=== PATIENT | female | born 1960 | race African-American/Black ===

== ENCOUNTER 2024-10-06 13:26 | Inpatient (IN) | payer OTHER, BC ==
[2024-10-06 15:04] LABS: ABSOLUTE IMMATURE GRANULOCYTES 0.02 x10^3/uL (0.0-0.031); BASOPHILS # 0.02 x10^3/uL (0.01-0.08); EOSINOPHIL % 0.3 % (0.7-5.8); EOSINOPHILS # 0.02 x10^3/uL (0.04-0.36); MCHC 32.4 g/dl (32.2-35.5); MEAN CELL VOLUME 97.9 fl (79.4-94.8); MEAN PLT VOLUME 10.3 fl (9.4-12.3); MONOCYTE # 0.40 x10^3/uL (0.24-0.86); MONOCYTE % 6.8 % (4.7-12.5); RDW 12.3 % (12.4-16.4)
[2024-10-06 15:21] LABS: CO2 27.0 mmol/L (21-32); GLUCOSE,RANDOM 109.0 mg/dL (74-106)
[2024-10-06 15:24] LABS: SGPT/ALT 34.0 U/L (13-61)
[2024-10-06 15:25] LABS: CREATININE 0.7 mg/dL (0.55-1.3); SGOT/AST 27.0 U/L (15-37)
[2024-10-06 15:26] LABS: TOT PROT 7.8 g/dl (6.4-8.2)
[2024-10-06 15:27] LABS: ALK PHOS 85.0 U/L (45-117)
[2024-10-06] MEDS ORDERED: NAPROXEN 500 MG TABLET PO PRN (18:59)
[2024-10-06] MEDS ORDERED: ALBUTEROL SO4 HFA INHALER IH PRN (19:02)
[2024-10-06] MEDS ORDERED: guaiFENesin/D-METHORPHAN HB 10 ML UNIT-DOSE CUPS PO PRN (19:03)
[2024-10-06] MEDS: ATORVASTATIN CA 40 MG TABLET (FP) PO SCH (22:04)
[2024-10-06] MEDS: MAGNESIUM CL 64 MG TABLET.SA PO ONE (22:04)
[2024-10-06 22:15] VITALS: BMI 30.4
[2024-10-07 06:39] LABS: ABSOLUTE IMMATURE GRANULOCYTES 0.03 x10^3/uL (0.0-0.031); BASOPHILS # 0.02 x10^3/uL (0.01-0.08); EOSINOPHIL % 1.0 % (0.7-5.8); EOSINOPHILS # 0.05 x10^3/uL (0.04-0.36); MCHC 32.7 g/dl (32.2-35.5); MEAN CELL VOLUME 98.1 fl (79.4-94.8); MEAN PLT VOLUME 9.8 fl (9.4-12.3); MONOCYTE # 0.42 x10^3/uL (0.24-0.86); MONOCYTE % 8.3 % (4.7-12.5); RDW 12.3 % (12.4-16.4)
[2024-10-07 07:05] LABS: GLUCOSE,RANDOM 94.0 mg/dL (74-106)
[2024-10-07 07:06] LABS: CO2 28.0 mmol/L (21-32)
[2024-10-07 07:07] LABS: LDL CHOLESTEROL (ONLY SJRH) 147.0 mg/dL (5-100)
[2024-10-07 07:08] LABS: SGPT/ALT 29.0 U/L (13-61)
[2024-10-07 07:09] LABS: CREATININE 0.6 mg/dL (0.55-1.3); SGOT/AST 21.0 U/L (15-37)
[2024-10-07 07:10] LABS: TOT PROT 7.2 g/dl (6.4-8.2)
[2024-10-07 07:11] LABS: ALK PHOS 78.0 U/L (45-117)
[2024-10-07] MEDS ORDERED: MAGNESIUM SULF 50% (8.12 MEQ/2 ML-1 GM VIAL) IVPB ONE (08:39)
[2024-10-07] MEDS: FOLIC ACID 1 MG TABLET (FP) PO SCH (09:35)
[2024-10-07] MEDS: MAGNESIUM SULFATE IN WATER 2 GM/50 ML IVPB IVPB ONE (09:35)
[2024-10-07] MEDS: ENOXAPARIN NA (PORCINE) 40 MG/0.4 ML DISP.SYRIN SQ SCH (09:35)
[2024-10-07] MEDS: amLODIPine BESYLATE 5 MG TABLET (FP) PO SCH (09:35)
[2024-10-07] MEDS: HYDROCHLOROTHIAZIDE 25 MG TABLET (FP) PO SCH (09:36)
[2024-10-07 17:45] VITALS: RESP 18
[2024-10-08 01:48] LABS: HIV INTERPRETATION NEGATIVE (NEGATIVE)
[2024-10-08 01:50] LABS: HCV DIAGNOSTIC IN-HOUSE W/RFLX NON-REACTIVE (NONREACTIVE)
[2024-10-08 07:23] LABS: CO2 28.0 mmol/L (21-32)
[2024-10-08 07:24] LABS: GLUCOSE,RANDOM 101.0 mg/dL (74-106)
[2024-10-08 07:27] LABS: CREATININE 0.6 mg/dL (0.55-1.3)
[2024-10-09 07:25] LABS: MCHC 32.5 g/dl (32.2-35.5); MEAN CELL VOLUME 99.0 fl (79.4-94.8); MEAN PLT VOLUME 10.2 fl (9.4-12.3); RDW 12.4 % (12.4-16.4)
[2024-10-09 07:40] LABS: CO2 28.0 mmol/L (21-32)
[2024-10-09 07:42] LABS: GLUCOSE,RANDOM 103.0 mg/dL (74-106)
[2024-10-09 07:45] LABS: CREATININE 0.6 mg/dL (0.55-1.3)
[2024-10-09] MEDS ORDERED: REGADENOSON 0.4 MG/5 ML PRE-FILLED SYRINGE IVPUSH ONE ×2 (09:45→11:47)
[2024-10-09 10:33] VITALS: BP 135/67; PULSE 61; TEMP 98.2
[2024-10-10] MEDS ORDERED: METHOTREXATE 2.5 MG TABLET PO SCH (10:00)
== END 2024-10-09 15:09 | disposition home or self-care (01) | DRG 311 ==
LOC: JER 13:26 → OBSVTOIN 17:27 → JERBED 17:27 → J4W 19:39
PROVIDERS: ADMIT Student in an Organized Health Care Education/Training Program; ATTEND Internal Medicine
DX: I20.89 Other forms of angina pectoris (principal); R07.9 Chest pain, unspecified; I10 Essential (primary) hypertension; M06.9 Rheumatoid arthritis, unspecified; E66.811 Obesity, class 1; E78.5 Hyperlipidemia, unspecified; G47.33 Obstructive sleep apnea (adult) (pediatric); E83.42 Hypomagnesemia
CPT/HCPCS: 36415; 71045-TC-FY; 78452-TC; 80048; 80053; 80061; 83036; 83735; 84100; 84439; 84443; 84484; 85025; 85027; 86803; 87389; 87637-QW; 93005; 93010; 93017; 93306-TC; 99285-25; A9502; J2785